=== PATIENT | female | born 1985 | race Caucasian/White ===

== ENCOUNTER 2020-06-14 07:28 | Emergency (ER) | payer BC ==
[2020-06-14 07:36] VITALS: BP 173/91
[2020-06-14] MEDS ORDERED: LIDOCAINE 5% (700 MG) TRANSDERMAL ADH..PATCH TP ONE (08:41)
--- NOTE | 2020-06-14 08:57 | ER Document Report ---
HPI - HPI Time Seen by Provider: 06/14/20 08:03 Pain Level: 3 Context: Patient is a 34-year-old female who presents the emergency department with a chief complaint of right elbow pain. Patient states that she was at work and she was cooking and her elbow started hurting. Patient denies any injury. States that she has history of arthritis and bone spurs and her feet. She also has history of carpal tunnel on both sides of her wrist, which she had surgery for. - ROS Systems Reviewed and Negative: Yes All other systems reviewed and negative - MUSCULOSKELETAL Musculoskeletal: REPORTS: Extremity pain. DENIES: Swelling - DERM Skin Color: Normal Skin Problems: None Past Medical History - Social History Smoking Status: Unknown if Ever Smoked Family History: Reviewed & Not Pertinent Vertical Provider Document - CONSTITUTIONAL Agree With Documented VS: Yes General Appearance: No Apparent Distress - INFECTION CONTROL TRAVEL OUTSIDE OF THE [place] IN LAST 30 DAYS: Yes - HEENT HEENT: Atraumatic, Normocephalic, PERRLA - NECK Neck: Normal Inspection - RESPIRATORY Respiratory: No Respiratory Distress - CARDIOVASCULAR Cardiovascular: Regular Rate, Regular Rhythm Pulses: Normal: Radial - MUSCULOSKELETAL/EXTREMETIES Musculoskeletal/Extremeties: Tender - Right elbow - NEURO Level of Consciousness: Awake, Alert, Appropriate Motor/Sensory: No Motor Deficit, No Sensory Deficit - DERM Integumentary: Warm, Dry Course - Re-evaluation Re-evalutation: 06/14/20 09:50 Patient's x-ray shows degenerative changes in her elbow. We will place the patient in a sling. We will send her a prescription for Ultram. She will follow-up with her primary care provider. Advised her to get physical therapy. She is in agreement with this plan. Capillary refill less than 3 seconds. Radial pulse 2+. No vascular compromise noted. Follow-up precautions were given. Verbal discharge instructions were given to the patient. They verbalized understanding. They are stable for discharge. - Vital Signs Vital signs: Temp Pulse Resp BP Pulse Ox 98.3 F 109 H 17 173/91 H 100 06/14/20 07:34 06/14/20 07:34 06/14/20 07:34 06/14/20 07:34 06/14/20 07:34 Discharge - Discharge Clinical Impression: Right elbow pain Condition: Stable Disposition: HOME, SELF-CARE Additional Instructions: You were seen today in the emergency department for right elbow pain. Your pain is due to arthritis in your elbow. You are being prescribed Ultram. Please do not drive or operate heavy machinery when you are on this medication. You can take this at night to help you with your pain. Use the sling to help with comfort. Follow-up with your primary care provider in regards to this visit. See if he can get physical therapy. Prescriptions: Tramadol HCl [Ultram 50 mg Tablet] 50 mg PO QHS #6 tablet Forms: Return to Work
--- NOTE | 2020-06-14 09:39 | RADIOLOGY REPORT (SQ) ---
EXAM DESCRIPTION: ELBOW RIGHT OVER 2 VIEWS IMAGES COMPLETED DATE/TIME: 06/14/2020 9:19 am REASON FOR STUDY: Right elbow pain COMPARISON: None. NUMBER OF VIEWS: Four view. TECHNIQUE: AP, lateral, and both oblique radiographic images acquired of the right elbow. LIMITATIONS: None. FINDINGS: MINERALIZATION: Normal. BONES: No acute fracture or dislocation. No worrisome bone lesions. No significant osteophytes. JOINT: No effusions. SOFT TISSUES: No soft tissue swelling. No foreign body. OTHER: No other significant finding. IMPRESSION: Degenerative changes. No acute fracture. TECHNICAL DOCUMENTATION: JOB ID: [id number] [facility] [employer]- All Rights Reserved Reading location - IP/workstation name: [email or web address]
== END 2020-06-14 10:10 | disposition home or self-care (01) ==
LOC: ER 07:28
DX: M25.521 Pain in right elbow (principal)
CPT/HCPCS: 99283